=== PATIENT | male | born 1990 | race Caucasian/White ===

== ENCOUNTER 2018-10-12 19:48 | Emergency (ER) | payer OTHER ==
[~2018-10-12] VITALS: Ht 182.9 cm; Wt 75.4 kg
[2018-10-12 19:52] VITALS: Ht 182.9 cm; Wt 75.4 kg
[2018-10-12] MEDS ORDERED: SOD CHLORIDE 0.9% 1,000 ML IV STA (20:25)
[2018-10-12] MEDS ORDERED: FAMOTIDINE 20 MG INJ IV STA (20:25)
[2018-10-12] MEDS ORDERED: BELLADONNA/PHENOBARBITAL TAB PO STA (20:25)
[2018-10-12] MEDS ORDERED: LIDOCAINE/MYLANTA 40 ML BTL PO STA (20:25)
[2018-10-12] MEDS ORDERED: ONDANSETRON 4 MG INJ IV STA (20:25)
--- NOTE | 2018-10-12 20:34 | ERD ---
ER Documentation Chief Complaint Chief Complaint generalized abdominal pain x 2 days with mild nausea no vomit HPI Is a 28-year-old otherwise healthy male presents with generalized abdominal pain that is had for 2 weeks. He has had nausea but no vomiting. He did go see urgent care and they gave him Pepcid but he took it and states it did not help. He has no dysuria hematuria frequency. He does get worse after he eats. No ji ticular pain. No fevers. ROS All systems reviewed and are negative except as per history of present illness. Medications Home Meds Active Scripts Magaldrate/Simethicone* (Mag-Al Plus Suspension*) 30 Ml Oral.susp, 30 ML PO Q6H PRN for GASTROINTESTINAL UPSET for 5 Days, ML Prov:NARDA DURÁN PA-C 10/12/18 Dicyclomine HCl (Dicyclomine HCl) 10 Mg Capsule, 10 MG PO TID PRN for ABDOMINAL CRAMPING, #20 CAP Prov:NARDA DURÁN PA-C 10/12/18 Allergies Allergies: Coded Allergies: No Known Allergy (Unverified , 10/12/18) PMhx/Soc Medical and Surgical Hx: pt denies Medical Hx, pt denies Surgical Hx Hx Alcohol Use: No Hx Substance Use: No Hx Tobacco Use: No Smoking Status: Never smoker FmHx Family History: No diabetes Physical Exam Vitals Vital Signs Date Temp Pulse Resp B/P (MAP) Pulse Ox O2 O2 Flow FiO2 Time Delivery Rate 10/12/18 99.0 98 16 138/95 97 19:52 (109) Physical Exam INITIAL VITAL SIGNS: Reviewed by me GENERAL: Awake, alert and oriented x 4, well appearing, nontoxic, speaking in full sentences. No acute distress RESPIRATORY: Clear to auscultation bilaterally. Symmetric chest wall rise. No wheezing or rales. No accessory muscle use. CV: Regular rate and rhythm. No murmurs, rubs, or gallops. ABDOMEN: Soft, non-distended. Nontender. Negative Johnston. Negative McBurneys point tenderness. No CVA tenderness bilaterally. No guarding. No rebound. Result Diagram: 10/12/18203310/12/182033 Results 24 hrs Laboratory Tests Test 10/12/18 20:34 White Blood Count 6.2 10^3/ul Red Blood Count 5.05 10^6/ul Hemoglobin 15.0 g/dl Hematocrit 46.3 % Mean Corpuscular Volume 91.7 fl Mean Corpuscular Hemoglobin 29.7 pg Mean Corpuscular Hemoglobin Concent 32.4 g/dl Red Cell Distribution Width 12.7 % Platelet Count 264 10^3/UL Mean Platelet Volume 10.2 fl Immature Granulocytes % 0.200 % Neutrophils % 69.0 % Lymphocytes % 20.6 % Monocytes % 7.9 % Eosinophils % 1.5 % Basophils % 0.8 % Nucleated Red Blood Cells % 0.0 /100WBC Immature Granulocytes # 0.010 10^3/ul Neutrophils # 4.3 10^3/ul Lymphocytes # 1.3 10^3/ul Monocytes # 0.5 10^3/ul Eosinophils # 0.1 10^3/ul Basophils # 0.1 10^3/ul Nucleated Red Blood Cells # 0.0 10^3/ul Urine Color STRAW Urine Clarity CLEAR Urine pH 6.0 Urine Specific [place] 1.005 Urine Ketones NEGATIVE mg/dL Urine Nitrite NEGATIVE mg/dL Urine Bilirubin NEGATIVE mg/dL Urine Urobilinogen NEGATIVE mg/dL Urine Leukocyte Esterase NEGATIVE [place]/ul Urine Hemoglobin NEGATIVE mg/dL Urine Glucose NEGATIVE mg/dL Urine Total Protein NEGATIVE mg/dl Sodium Level 142 mmol/L Potassium Level 4.0 mmol/L Chloride Level 101 mmol/L Carbon Dioxide Level 31 mmol/L Anion Gap 10 Blood Urea Nitrogen 13 mg/dl Creatinine 0.76 mg/dl Est Glomerular Filtrat Rate mL/min > 60 mL/min Glucose Level 121 mg/dl Calcium Level 9.4 mg/dl Total Bilirubin 0.8 mg/dl Direct Bilirubin 0.00 mg/dl Indirect Bilirubin 0.8 mg/dl Aspartate Amino Transf (AST/SGOT) 22 IU/L Alanine Aminotransferase (ALT/SGPT) 23 IU/L Alkaline Phosphatase 40 IU/L Total Protein 8.4 g/dl Albumin 4.7 g/dl Globulin 3.70 g/dl Albumin/Globulin Ratio 1.27 Lipase 46 U/L Current Medications Medications Dose Sig/Pat Start Time Status Last (Trade) Ordered Route PRN Stop Time Admin Dose Reason Admin Sodium 1,000 ml @ Q1H STAT 10/12/18 DC 10/12/18 Chloride 1,000 mls/hr IV 20:25 10/12/18 20:41 21:24 Ondansetron 4 mg ONCE STAT 10/12/18 DC 10/12/18 HCl (Zofran IV 20:25 10/12/18 20:41 Inj) 20:27 Famotidine 20 mg ONCE STAT 10/12/18 DC 10/12/18 (Pepcid Iv) IV 20:25 10/12/18 20:41 20:27 40 ml ONCE STAT 10/12/18 DC 10/12/18 Miscellaneous PO 20:25 10/12/18 20:41 Medication 20:27 (Gi Cocktail (2)) Belladonna/ 2 tab ONCE STAT 10/12/18 DC 10/12/18 Phenobarbital PO 20:25 10/12/18 20:41 () 20:27 Procedures/MDM The differential diagnosis includes but is not limited to appendicitis, cholelithiasis, cholecystitis, pancreatitis, hepatitis, gastritis, peptic ulcer disease, bowel obstruction, diverticulitis, renal disease including stones, torsion, AAA, pyelonephritis, and others. Laboratory analysis shows no evidence of acute emergent abnormality. No evidence of significant leukocytosis suggesting systemic infection or severe anemia. No evidence of acute renal or liver failure, no evidence of severe alkalosis or acidosis. Patient discharged with Stiven and Isabel. Patient counseled regarding my diagnostic impression and care plan. Prior to discharge all questions answered. Pt agrees with treatment plan and understands strict return precautions. Pt is instructed to follow up with primary care provider within 24-48 hours. Precautionary instructions provided including instructions to return to the ER if not improving or for any worsening or changing symptoms or concerns. Departure Diagnosis: Primary Impression: Abdominal pain Condition: Stable NARDA DURÁN PA-C Oct 12, 2018 20:34
[2018-10-12 21:31] VITALS: BP 121/69; PULSE 69; RESP 16
[2018-10-12] MEDS ORDERED: UDMYL PO (21:31)
[2018-10-12] MEDS ORDERED: DICY10CA40 PO (21:31)
== END 2018-10-12 21:42 | disposition home or self-care (01) ==
LOC: FTE 19:48
DX: R10.9 Unspecified abdominal pain (principal); R11.0 Nausea
CPT/HCPCS: 36415; 80053; 81003; 83690; 85025; 96361; 96374; 96375; J2405; J7030; Z7502; Z7610